=== PATIENT | male | born 1995 | race Caucasian/White ===

== ENCOUNTER 2018-09-14 11:23 | Day surgery (SDC) | payer OTHER, SELFPAY ==
[2018-09-14] MEDS ORDERED: TETANUS & DIPHTHERIA TOX,ADULT 0.5 ML VIAL ONE (11:47)
--- NOTE | 2018-09-14 11:51 | RAD REPORT ---
EXAM DESCRIPTION: RAD - Hand Right 3 View - 09/14/2018 11:40 am CLINICAL HISTORY: amputation;Pain;Deformity COMPARISON: No comparisons FINDINGS: The distal aspect of the third finger demonstrates soft tissue and bony tuft amputation.
[2018-09-14] MEDS ORDERED: LIDOCAINE 1% MPF 5 ML VIAL ONE (11:59)
--- NOTE | 2018-09-14 12:25 | ER ---
Nurse's Notes 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 Transition of care: patient was not received from another setting of care. Onset of symptoms was September 14, 2018. Risk Assessment: Do you want to hurt yourself or someone else? Patient reports no desire to harm self or others. Initial Sepsis Screen: Does the patient meet any 2 criteria? No. Patient's initial sepsis screen is negative. Does the patient have a suspected source of infection? No. Patient's initial sepsis screen is negative. Care prior to arrival: Medication(s) given: Tylenol, 1000 mg, Ancef 1 gram IV and fentanyl 50 mcg IVP IV initiated. 20 GA, in the left antecubital area. 11:24 Method Of Arrival: EMS: [facility] jl7 11:24 Acuity: MILADYS 3 jl7 Triage Assessment: 11:29 General: Appears in no apparent distress. uncomfortable, Behavior is calm, cooperative, jl7 appropriate for age. Pain: Complains of pain in right middle finger and right little finger Pain currently is 6 out of 10 on a pain scale. Neuro: Level of Consciousness is awake, alert, obeys commands, Oriented to person, place, time, situation. Cardiovascular: Patient's skin is warm and dry. Respiratory: Airway is patent Respiratory effort is even, unlabored, Respiratory pattern is regular, symmetrical. Derm: Skin is pink, warm \T\ dry. Injury Description: Amputation sustained to dorsal aspect of distal phalanx of right middle finger Avulsion sustained to dorsal aspect of distal phalanx of right little finger. Historical: - Allergies: 11:29 No Known Allergies; jl7 - Home Meds: 11:29 None [Active]; jl7 - PMHx: 11: None; jl7 - PSHx: 11:29 None; jl7 - Immunization history:: Adult Immunizations not up to date. - Social history:: Smoking status: Patient/guardian denies using tobacco. - Ebola Screening: : No symptoms or risks identified at this time. Screenin:30 Fall Risk No fall in past 12 months (0 pts). No secondary diagnosis (0 pts). IV access aj1 (20 points). Ambulatory Aid- None/Bed Rest/Nurse Assist (0 pts). Gait- Normal/Bed Rest/Wheelchair (0 pts) Mental Status- Oriented to own ability (0 pts). Total Rain Fall Scale indicates No Risk (0-24 pts). 13:30 Abuse screen: Denies threats or abuse. Denies injuries from another. Nutritional aj1 screening: No deficits noted. Tuberculosis screening: No symptoms or risk factors identified. Assessment: 12:45 Reassessment: Patient appears in no apparent distress at this time. Patient and/or aj1 family updated on plan of care and expected duration. Pain level reassessed. Patent moved to ER 18. General: Appears in no apparent distress. uncomfortable, Behavior is calm, cooperative, appropriate for age. Neuro: Level of Consciousness is awake, alert, obeys commands. Cardiovascular: Patient's skin is warm and dry. Respiratory: Airway is patent Respiratory effort is even, unlabored, Respiratory pattern is regular, symmetrical. Derm: drsg noted to right hand with a small amount of bloody drainage noted. 13:30 Reassessment: Patient appears in no apparent distress at this time. No changes from aj1 previously documented assessment. Patient and/or family updated on plan of care and expected duration. Pain level reassessed. Patient is alert, oriented x 3, equal unlabored respirations, skin warm/dry/pink. Vital Signs: 11:29 BP 146 / 99; Pulse 85; Resp 16 S; Temp 98.7(O); Pulse Ox 100% on R/A; Weight 68.04 kg jl7 (R); Height 5 ft. 3 in. (160.02 cm) (R); Pain 6/10; 11:49 BP 137 / 92; Pulse 87; Resp 16; Pulse Ox 100% on R/A; mt 13:30 BP 127 / 89; Pulse 82; Resp 18; Pulse Ox 100% on R/A; aj1 11:29 Body Mass Index 26.57 (68.04 kg, 160.02 cm) jl7 ED Course: 11:24 Patient arrived in ED. aa5 11:24 Owen Corona PA is PHCP. jr8 11:24 Kevin Chavez MD is Attending Physician. jr8 11:24 Verito Terrazas RN is Primary Nurse. jl7 11:28 Triage completed. jl7 11:29 Arm band placed on right wrist. jl7 11:39 XRAY Hand RIGHT 3 View In Process Unspecified. EDMS 12:23 Judd Elizabeth MD is Hospitalizing Provider. jr8 12:45 Report received from BANG Sellers. aj1 13:48 Patient admitted, IV remains in place. aj1 13:49 Patient has correct armband on for positive identification. 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 Exp: jl7 07/14/2020. Lot #: [id number]. } Route: IM; Site: right deltoid; 13:27 Follow up: Response: No adverse reaction aj1 12:45 Drug: fentaNYL (PF) 50 mcg Route: IVP; Site: left antecubital; aj1 13:25 Follow up: Response: No adverse reaction aj1 13:25 Drug: NS 0.9% 1000 ml Route: IV; Rate: 1000 ml; Site: left antecubital; aj1 13:25 Follow up: IV Status: Infusion continued upon transfer aj1 Outcome: 12:24 Decision to Hospitalize by Provider. jr8 13:30 Admitted to OR accompanied by nurse, via wheelchair, with chart. aj1 13:30 Condition: good 13:30 Discharge instructions given to patient, Instructed on the need for admit. 13:54 Patient left the ED. aj1 Signatures: Dispatcher [employer] EDMoriah Hollins RN RN aj1 Freya Marcano RN RN aa5 Owen Corona PA PA jr8 Verito Terrazas, BANG RN jose [email or web address] Kamryn Anderson pr Corrections: (The following items were deleted from the chart) 13:51 13:45 Reassessment: Patient appears in no apparent distress at this time. No changes aj1 from previously documented assessment. Patient and/or family updated on plan of care and expected duration. Pain level reassessed. Patient is alert, oriented x 3, equal unlabored respirations, skin warm/dry/pink. aj1 13:50 Abuse screen: Denies threats or abuse. Denies injuries from another. aj1 [facility] 13:50 Nutritional screening: No deficits noted. aj1 [facility] 13:50 Tuberculosis screening: No symptoms or risk factors identified. aj1 [facility] 13:50 Fall Risk No fall in past 12 months (0 pts). No secondary diagnosis (0 pts). IV aj1 access (20 points). Ambulatory Aid- None/Bed Rest/Nurse Assist (0 pts). Gait- Normal/Bed Rest/Wheelchair (0 pts) Mental Status- Oriented to own ability (0 pts). Total Rain Fall Scale indicates No Risk (0-24 pts). aj1
--- NOTE | 2018-09-14 12:25 | EDPHYS ---
Physician Documentation [facility] Name: Mark Elise Age: 23 yrs Sex: Male : 1995 Arrival Date: 09/14/2018 Time: 11:24 Bed 18 Private MD: ED Physician Kevin Chavez HPI: 09/14 11:34 This 23 yrs old Male presents to ER via EMS with complaints of Finger Injury. 11:34 Trauma demographics: Location of Injury: The injury occurred at work, Date: September 142018, Time: 10:45. Mechanism of injury: Crush injury: from from a heavy object. Associated injuries: The patient sustained dorsal aspect of distal phalanx of right middle finger and right middle fingernail, deformity, laceration, dorsal aspect of distal phalanx of right little finger and right little fingernail, laceration. Associated injuries: The patient sustained. Associated injuries: The patient sustained Onset: The symptoms/episode began/occurred suddenly, just prior to arrival. The patient has not recently seen a physician. Patient reports he was moving heavy equipment when he got his fingers stuck between two objects, causing a crush injury with complete amputation of his R 3rd finger distal phalanx and laceration to R 5th finger nailbed. Historical: - Allergies: 11:29 No Known Allergies; jl7 - Home Meds: 11:29 None [Active]; jl7 - PMHx: 11:29 None; jl7 - PSHx: 11:29 None; jl7 - Immunization history:: Adult Immunizations not up to date. - Social history:: Smoking status: Patient/guardian denies using tobacco. - Ebola Screening: : No symptoms or risks identified at this time. ROS: 11:34 Constitutional: Negative for fever, chills, and weight loss, Cardiovascular: Negative jr8 for chest pain, palpitations, and edema, Respiratory: Negative for shortness of breath, cough, wheezing, and pleuritic chest pain, Abdomen/GI: Negative for abdominal pain, nausea, vomiting, diarrhea, and constipation, Back: Negative for injury and pain, Skin: Negative for injury, rash, and discoloration. 11:34 MS/extremity: Positive for deformity, laceration, tenderness, of the dorsal aspect of distal phalanx of right middle finger, dorsal aspect of distal phalanx of right little finger, right little fingernail and right middle fingernail. Exam: 11:39 Constitutional: This is a well developed, well nourished patient who is awake, alert, jr8 and in no acute distress. Head/Face: Normocephalic, atraumatic. Neck: Trachea midline, no thyromegaly or masses palpated, and no cervical lymphadenopathy. Supple, full range of motion without nuchal rigidity, or vertebral point tenderness. No Meningismus. Chest/axilla: Normal chest wall appearance and motion. Nontender with no deformity. No lesions are appreciated. Cardiovascular: Regular rate and rhythm with a normal S1 and S2. No gallops, murmurs, or rubs. Normal PMI, no JVD. No pulse deficits. Respiratory: Lungs have equal breath sounds bilaterally, clear to auscultation and percussion. No rales, rhonchi or wheezes noted. No increased work of breathing, no retractions or nasal flaring. Abdomen/GI: Soft, non-tender, with normal bowel sounds. No distension or tympany. No guarding or rebound. No evidence of tenderness throughout. Back: No spinal tenderness. No costovertebral tenderness. Full range of motion. 11:39 Neuro: Awake and alert, GCS 15, oriented to person, place, time, and situation. Cranial nerves II-XII grossly intact. Motor strength 5/5 in all extremities. Sensory grossly intact. Cerebellar exam normal. Normal gait. 11:39 Musculoskeletal/extremity: Extremities: grossly normal except: noted in the dorsal aspect of distal phalanx of right middle finger and right middle fingernail: amputation, noted in the dorsal aspect of distal phalanx of right little finger and right little fingernail: laceration, tenderness, ROM: limited active range of motion due to pain, in the right hand, limited passive range of motion due to pain, in the right hand, Circulation is intact in all extremities. Sensation intact. Compartment Syndrome exam of affected extremity: is normal. no numbness, no tingling, no palor, no weak pulses, Nails: partial avulsion, of the right little fingernail and right middle fingernail. Vital Signs: 11:29 BP 146 / 99; Pulse 85; Resp 16 S; Temp 98.7(O); Pulse Ox 100% on R/A; Weight 68.04 kg jl7 (R); Height 5 ft. 3 in. (160.02 cm) (R); Pain 6/10; 11:49 BP 137 / 92; Pulse 87; Resp 16; Pulse Ox 100% on R/A; mt 13:30 BP 127 / 89; Pulse 82; Resp 18; Pulse Ox 100% on R/A; aj1 11:29 Body Mass Index 26.57 (68.04 kg, 160.02 cm) jl7 Laceration: 12:43 Wound Repair of 3cm ( 1.2in ) subcutaneous laceration to dorsal aspect of distal jr8 phalanx of right little finger and right little fingernail. Irregularly shaped.. Hemostasis noted.. nail avulsion. Distal neuro/vascular/tendon intact. Anesthesia: Digital block administered with 2 mls of 1% lidocaine. Wound prep: Moderate cleansing with hibiclenz by wy, Wound irrigation with saline, Wound margin revised minimally, Wound explored minimally. Skin closed with 3 4-0 Prolene using simple sutures and sterile technique. Dressed with Kerlix. Patient tolerated well. MDM: 11:24 Patient medically screened. jr8 12:20 Data reviewed: vital signs, nurses notes, radiologic studies, plain films, and as a jr8 result, I will admit patient. Data interpreted: Pulse oximetry: on room air is 100 %. Interpretation: normal. Counseling: I had a detailed discussion with the patient and/or guardian regarding: the historical points, exam findings, and any diagnostic results supporting the discharge/admit diagnosis, lab results, radiology results, the need for further work-up and treatment in the hospital. 12:21 Physician consultation: Judd Elizabeth MD was called at 11:45, was contacted at 11:45, jr8 regarding consult, patient's condition, and will see patient in OR. 12:24 ED course: Updated tetanus. 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 jr8 09/14 12:21 Order name: CBC with Diff; Complete Time: 13:52 jr8 09/14 12:21 Order name: Basic Metabolic Panel; Complete Time: 13:11 jr8 09/14 11:24 Order name: XRAY Hand RIGHT 3 View; Complete Time: 12:06 jr8 09/14 12:58 Order name: CBC Smear Scan; Complete Time: 13:52 EDMS 04/17 11:25 Order name: NPO; Complete Time: 11:27 [facility] 09/14 11:44 Order name: Dressing - Wound; Complete Time: 11:46 [facility] 09/14 11:44 Order name: Gloves, Sterile; Complete Time: 11:46 [facility] 09/14 11:44 Order name: Setup Suture Tray; Complete Time: 11:46 [facility] 09/14 11:45 Order name: Consult Hand Surgery-Judd Elizabeth MD (PLASTIC SURGERY) jr8 Administered Medications: 11:38 Drug: Tetanus-Diphtheria Toxoid Adult 0.5 ml {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 Exp: jl7 07/14/2020. Lot #: [id number]. } Route: IM; Site: right deltoid; 13:27 Follow up: Response: No adverse reaction aj1 12:45 Drug: fentaNYL (PF) 50 mcg Route: IVP; Site: left antecubital; aj1 13:25 Follow up: Response: No adverse reaction aj1 13:25 Drug: NS 0.9% 1000 ml Route: IV; Rate: 1000 ml; Site: left antecubital; aj1 13:25 Follow up: IV Status: Infusion continued upon transfer aj1 Disposition: 14:29 Co-signature as Attending Physician, Kevin Chavez MD. rn Disposition: 09/14/18 12:24 Hospitalization ordered by Judd Elizabeth for Observation. 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 - Bed requested for DAY SURGERY OTHER. - Status is Observation. aj1 - Condition is Stable. - Problem is new. - Symptoms have improved. UTI on Admission? No Signatures: Dispatcher [employer] [facility] Janett Pham Angela, RN RN aj1 Kevin Chavez MD MD rn Roszak, Josh, PA PA jr8 Verito Terrazas RN RN jl7 Corrections: (The following items were deleted from the chart) 13:31 12:24 Hospitalization Ordered by Judd Elizabeth MD for Observation. 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 Bed requested for Operating Room. Status is Observation. Condition is Stable. Problem is new. Symptoms have improved. UTI on Admission? No. jr8 13:54 13:31 09/14/2018 12:24 Hospitalization Ordered by Judd Elizabeth MD for Observation. 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 Bed requested for DAY SURGERY OTHER. Status is Observation. Condition is Stable. Problem is new. Symptoms have improved. UTI on Admission? No. bd
[2018-09-14] MEDS ORDERED: FENTANYL CITR 100 MCG/2 ML ONE ×3 (12:51→15:14)
[2018-09-14 12:55] LABS: Absolute Lymphocytes (CBC) 1.8 K/uL (0.7-4.9); Absolute Monocytes 0.9 K/uL (0.1-1.3); Absolute Neutrophil 7.9 K/uL (1.8-8.0); Basophils % 0.9 % (0-1.3); Eosinophils % 1.2 % (0-4.4); Hematocrit 38.8 % (39.6-49.0); MPV 9.2 fL (7.6-11.3); Monocytes % 7.8 % (3.3-12.3); RBC Red Blood Cell Count 6.81 M/uL (4.33-5.43)
[2018-09-14 13:09] LABS: Potassium 4.1 mmol/L (3.5-5.1)
[2018-09-14] MEDS ORDERED: NA CHLORIDE 0.9% 1,000 ML ONE (13:34)
[2018-09-14 13:50] LABS: Blood Morphology Comment NOTED (NOT SEEN); Platelet Estimate ADEQ; Urine White Blood Cell Casts OK
[2018-09-14 13:51] LABS: Hypochromasia 2+; Polychromasia SLIGHT; Target Cells FEW
[2018-09-14] MEDS ORDERED: PROPOFOL 200 MG/20 ML VIAL IV ONE (14:09)
[2018-09-14] MEDS ORDERED: ROCURONIUM 50 MG/5 ML VIAL IV ONE (14:10)
[2018-09-14] MEDS ORDERED: ONDANSETRON 4 MG/2 ML VIAL ONE (14:10)
[2018-09-14] MEDS ORDERED: LIDOCAINE 2% MPF 5 ML VIAL ONE (14:10)
[2018-09-14] MEDS ORDERED: MIDAZOLAM HCL 2 MG/2 ML INJ ONE (14:10)
[2018-09-14] MEDS: HYDROMORPHONE HCL 1 MG/ML INJ ONE ×3 (15:42→15:48)
[2018-09-14] MEDS ORDERED: HYDROMORPHONE HCL 1 MG/ML INJ ONE (16:04)
[2018-09-14] MEDS ORDERED: CODEINE 30MG/APAP 300MG TAB ONE (16:18)
--- NOTE | 2018-09-15 01:40 | OP ---
Surgeon: Judd Elizabeth MD Preoperative Diagnosis: Amputated tip of the right middle finger. Postoperative Diagnosis: Amputated tip of the right middle finger. Procedure Performed: Debridement of skin, subcutaneous tissue, bone; V-Y flap closure. Anesthesia: General. Procedure In Detail: After satisfactory induction of general anesthesia, the right hand was prepped with Betadine scrub and Betadine paint. Dry sterile drapes applied in usual manner. The arm was kirit vated, exsanguinated with an Esmarch, tourniquet inflated to 250 mmHg. Hand placed on the [place] ta ble. A periosteal elevator was used to remove nail plate. The skin and subcutaneous tissues were de brided as needed with forceps and tenotomy scissors. The bone was cut straight with a bone cutter an d filed with a rasp. The wound was jet lavaged, irrigated with 3 L of dilute Betadine solution. A v olar V-Y flap was elevated, advanced, and closed with 4-0 Prolene. Tourniquet released. The nail pl ate was sewn back proximally with 4-0 Prolene. Dressing consisted of Xeroform, 2 inch Pattie. The pa tient tolerated the procedure well and returned to recovery. ALESHIA/ABRAHAM Voice ID: [id number] Report ID: [id number]
== END 2018-09-14 16:59 | disposition home or self-care (01) ==
LOC: ER 11:23 → DS 13:40
PROVIDERS: ATTEND Specialist
PROC: 0PBT0ZZ Excision of Right Finger Phalanx, Open Approach (ICD-10-PCS; 2018-09-14)
PROC: 0HQQXZZ Repair Finger Nail, External Approach (ICD-10-PCS; 2018-09-14)
PROC: 0JQJ0ZZ Repair Right Hand Subcutaneous Tissue and Fascia, Open Approach (ICD-10-PCS; 2018-09-14)
PROC: 0JXJ0ZZ Transfer Right Hand Subcutaneous Tissue and Fascia, Open Approach (ICD-10-PCS; principal; 2018-09-14 14:30)
DX: S68.622A Partial traumatic transphalangeal amputation of right middle finger, initial encounter (principal); S61.316A Laceration without foreign body of right little finger with damage to nail, initial encounter; W23.0XXA Caught, crushed, jammed, or pinched between moving objects, initial encounter; Y99.0 Civilian activity done for income or pay; Z23 Encounter for immunization
CPT/HCPCS: 36415; 80048; 85025; 88304; 88305; 88311; 90714; 96374; 99285; J1170; J2250; J2405; J2704; J3010; J7030